=== PATIENT | male | born 1975 | race Caucasian/White ===

== ENCOUNTER 2020-10-25 04:42 | Emergency (ER) | payer MEDICAID ==
[~2020-10-25] VITALS: Ht 160 cm; Wt 74.0 kg
[~2020-10-25 04:42] MED LIST: ABILIFY; FOLIC ACID; METFORMIN; PANTOPRAZOLE; PHENYTOIN SODIUM; SEROQUEL; THIAMINE; [UNRECOGNIZED DRUG - OTHER]
[2020-10-25 05:11] VITALS: BP 124/86
== END 2020-10-25 08:36 | disposition home or self-care (01) ==
LOC: ER 04:42
DX: R53.1 Weakness (principal); Z88.8 Allergy status to other drugs, medicaments and biological substances; Z53.21 Procedure and treatment not carried out due to patient leaving prior to being seen by health care provider

== ENCOUNTER 2021-04-05 13:23 | Emergency (ER) | payer MEDICAID ==
[~2021-04-05] VITALS: Ht 165.1 cm; Wt 61.0 kg
[2021-04-05 13:28] VITALS: BP 124/74
== END 2021-04-05 13:36 | disposition left against medical advice (07) ==
LOC: ER 13:23
DX: Z53.21 Procedure and treatment not carried out due to patient leaving prior to being seen by health care provider (principal)

== ENCOUNTER 2021-04-12 10:32 | Emergency (ER) | payer MEDICAID ==
[~2021-04-12] VITALS: Ht 157.5 cm; Wt 68.5 kg
[2021-04-12 11:06] VITALS: BP 111/79
== END 2021-04-12 11:08 | disposition left against medical advice (07) ==
LOC: ER 10:32
DX: Z53.21 Procedure and treatment not carried out due to patient leaving prior to being seen by health care provider (principal)

== ENCOUNTER 2021-04-14 23:32 | Emergency (ER) | payer MEDICAID ==
[~2021-04-14] VITALS: Ht 154.9 cm; Wt 71.4 kg
[2021-04-14 23:43] VITALS: BP 108/58
== END 2021-04-15 00:40 | disposition home or self-care (01) ==
LOC: ER 23:32
DX: Z00.00 Encounter for general adult medical examination without abnormal findings (principal); R56.9 Unspecified convulsions; Z59.0 Homelessness; E11.9 Type 2 diabetes mellitus without complications; I11.9 Hypertensive heart disease without heart failure; Z88.6 Allergy status to analgesic agent; Z88.8 Allergy status to other drugs, medicaments and biological substances; Z98.890 Other specified postprocedural states
CPT/HCPCS: 82962; 99281

== ENCOUNTER 2021-11-14 11:45 | Emergency (ER) | payer MEDICAID ==
[~2021-11-14] VITALS: Ht 170.2 cm; Wt 72.0 kg
[~2021-11-14 11:45] MED LIST changes: +DEPER5 MT; +OLAN10TA3 MT; +PHEN100C4 MT
[2021-11-14 11:52] VITALS: BP 113/71
== END 2021-11-14 18:40 | disposition left against medical advice (07) ==
LOC: ER 12:20
DX: Z53.21 Procedure and treatment not carried out due to patient leaving prior to being seen by health care provider (principal)
CPT/HCPCS: 99283

== ENCOUNTER 2021-12-11 18:10 | Emergency (ER) | payer MEDICAID ==
[~2021-12-11] VITALS: Ht 175.3 cm; Wt 80.0 kg
[2021-12-11 18:12] VITALS: BP 114/74
== END 2021-12-11 19:19 | disposition left against medical advice (07) ==
LOC: ER 18:10
DX: Z53.21 Procedure and treatment not carried out due to patient leaving prior to being seen by health care provider (principal); F31.9 Bipolar disorder, unspecified; F20.9 Schizophrenia, unspecified

== ENCOUNTER 2021-12-15 02:25 | Emergency (ER) | payer MEDICAID ==
[~2021-12-15] VITALS: Ht 157.5 cm; Wt 59.0 kg
[2021-12-15 02:29] VITALS: BP 118/73
== END 2021-12-15 03:19 | disposition home or self-care (01) ==
LOC: ER 02:52
DX: F31.9 Bipolar disorder, unspecified (principal); F41.9 Anxiety disorder, unspecified; E11.9 Type 2 diabetes mellitus without complications; F20.9 Schizophrenia, unspecified; Z88.3 Allergy status to other anti-infective agents; Z88.6 Allergy status to analgesic agent; Z88.8 Allergy status to other drugs, medicaments and biological substances
CPT/HCPCS: 99283

== ENCOUNTER 2021-12-16 00:29 | Emergency (ER) | payer MEDICAID ==
[~2021-12-16] VITALS: Ht 154.9 cm; Wt 64.0 kg
[2021-12-16 04:21] VITALS: BP 128/66
== END 2021-12-16 04:28 | disposition home or self-care (01) ==
LOC: ER 00:29 → EDUNIT# 00:29 → ER 04:28
DX: M54.9 Dorsalgia, unspecified (principal); F32.9 Major depressive disorder, single episode, unspecified; Z88.6 Allergy status to analgesic agent; Z88.8 Allergy status to other drugs, medicaments and biological substances; Z59.00 Homelessness unspecified
CPT/HCPCS: 99283

== ENCOUNTER 2022-06-05 22:01 | Emergency (ER) | payer MEDICAID | END 2022-06-05 22:30 | disposition left against medical advice (07) | LOC: ER 22:01 | DX: Z53.21 Procedure and treatment not carried out due to patient leaving prior to being seen by health care provider (principal) ==

== ENCOUNTER 2023-11-07 14:50 | Emergency (ER) | payer MEDICAID ==
[~2023-11-07] VITALS: Ht 170.2 cm; Wt 69.0 kg
[2023-11-07 14:58] VITALS: O2SAT 100
[2023-11-07] MEDS ORDERED: LORAZEPAM 2MG/ML INJ IM STA (15:14)
[2023-11-07 15:48] LABS: CLARITY URINE CLEAR (CLEAR); COLOR URINE YELLOW (YELLOW); GLUCOSE URINE NEGATIVE (NEGATIVE); KETONES URINE 2+ (NEGATIVE); LEUKOCYTE ESTERASE URINE NEGATIVE (NEGATIVE); NITRITE URINE NEGATIVE (NEGATIVE); OCCULT BLOOD URINE NEGATIVE (NEGATIVE); PH URINE 5.5 (4.5-8.0); PROTEIN URINE 1+ (NEGATIVE); SPECIFIC GRAVITY URINE 1.038 (1.005-1.030)
[2023-11-07 16:04] LABS: BACTERIA URINE 2+
[2023-11-07 16:05] LABS: MUCUS URINE TRACE /lpf (NONE/TRACE); RBC URINE 0-2 /hpf (0-2); SQUAMOUS EPITHELIAL CELL URINE FEW /lpf (RARE/1+); WBC URINE 0-2 /hpf (0-2)
[2023-11-07 17:05] LABS: HEMATOCRIT. 38.3 % (42.0-52.0); HEMOGLOBIN. 12.4 g/dL (14.0-18.0); MEAN CORPUSCULAR HEMOGLOBIN 31.1 pg (28.0-32.0); MEAN CORPUSCULAR HGB CONC 32.5 g/dL (31.0-37.0); MEAN CORPUSCULAR VOLUME 95.7 fL (80.0-94.0); MEAN PLATELET VOLUME 9.2 fl (7.4-10.4); PLATELET 205 x1000/uL (130-400); RED CELL DISTRIBUTION WIDTH 13.3 % (11.6-14.6); WHITE BLOOD COUNT 8.5 x1000/uL (4.5-11.0)
[2023-11-07 17:09] LABS: DIFFERENTIAL COMMENT 1
[2023-11-07 17:11] LABS: *AMPHETAMINES SCREEN URINE NEGATIVE (NEGATIVE); *BARBITURATES SCREEN URINE NEGATIVE (NEGATIVE); *BENZODIAZEPINES SCREEN URINE NEGATIVE (NEGATIVE); *COCAINE SCREEN URINE NEGATIVE (NEGATIVE); ECSTASY MDMA SCREEN URINE NEGATIVE (NEGATIVE); METHADONE URINE SCREEN Neg (NEGATIVE); OPIATES URINE SCREEN NEGATIVE (NEGATIVE); PHENCYCLIDINE URINE SCREEN NEGATIVE (NEGATIVE)
[2023-11-07 17:23] LABS: ALANINE AMINOTRANSFERASE 86 IU/L (10-49); ALBUMIN 3.7 g/dL (3.2-4.8); ASPARTATE AMINOTRANSFERASE 230 IU/L (<34); BILIRUBIN TOTAL 0.8 mg/dL (0.1-1.0); CALCIUM 8.3 mg/dL (8.7-10.4); CARBON DIOXIDE 23 mEq/L (21-32); CHLORIDE 103 mEq/L (98-107); CREATININE 0.8 mg/dL (0.6-1.3); GLUCOSE 127 mg/dL (70-105); POTASSIUM 3.9 mEq/L (3.5-5.1); PROTEIN TOTAL 6.5 g/dL (6.0-8.3); SODIUM 136 mEq/L (136-145); UREA NITROGEN BLOOD 30 mg/dL (9-23)
[2023-11-07 17:24] LABS: ETHANOL BLOOD < 10 mg/dL (<10)
[2023-11-07 17:30] LABS: PLATELET ESTIMATE NORMAL
[2023-11-08 07:53] VITALS: BP 112/73; PULSE 87; RESP 18; TEMP 98.2
[2023-11-08] MEDS ORDERED: CLOTRIMAZOLE 1% CREAM 15GM TOP ONE (08:15)
== END 2023-11-08 09:37 | disposition home or self-care (01) ==
LOC: ER 14:50
DX: F31.9 Bipolar disorder, unspecified (principal); R45.851 Suicidal ideations; F20.9 Schizophrenia, unspecified; Z88.6 Allergy status to analgesic agent; Z88.4 Allergy status to anesthetic agent; Z88.5 Allergy status to narcotic agent; Z88.8 Allergy status to other drugs, medicaments and biological substances; Z20.822 Contact with and (suspected) exposure to COVID-19
CPT/HCPCS: 80053; 80305; 81003; 80307; 80329; 80320; 85025; 36415; 96372; 99284; 87426; J2060; G0480

== ENCOUNTER 2023-11-19 23:03 | Emergency (ER) | payer MEDICAID ==
[~2023-11-19] VITALS: Ht 154.9 cm; Wt 61.0 kg
[2023-11-19 23:14] VITALS: O2SAT 95
[2023-11-20 01:48] VITALS: BP 114/76; PULSE 90; RESP 16; TEMP 98.6
== END 2023-11-20 03:45 | disposition home or self-care (01) ==
LOC: ER 23:03
DX: R46.2 Strange and inexplicable behavior (principal); R56.9 Unspecified convulsions
CPT/HCPCS: 99283

== ENCOUNTER 2023-12-13 13:02 | Emergency (ER) | payer MEDICAID ==
[~2023-12-13] VITALS: Ht 170.2 cm; Wt 84.0 kg
[2023-12-13 13:08] VITALS: BP 142/74; PULSE 96; RESP 16; TEMP 98.5; O2SAT 98
== END 2023-12-13 18:21 | disposition home or self-care (01) ==
LOC: ER 13:02
DX: F10.129 Alcohol abuse with intoxication, unspecified (principal); Z88.4 Allergy status to anesthetic agent; Z88.8 Allergy status to other drugs, medicaments and biological substances; Z88.6 Allergy status to analgesic agent; Z88.9 Allergy status to unspecified drugs, medicaments and biological substances; Z88.5 Allergy status to narcotic agent; Z79.899 Other long term (current) drug therapy; Z86.59 Personal history of other mental and behavioral disorders; Y90.9 Presence of alcohol in blood, level not specified
CPT/HCPCS: 99283; Z7610

== ENCOUNTER 2024-02-23 16:52 | Emergency (ER) | payer MEDICAID ==
[~2024-02-23] VITALS: Ht 154.9 cm; Wt 82.0 kg
[2024-02-23 17:11] VITALS: O2SAT 99
[2024-02-23 17:59] LABS: BASOPHILS % 0.7 % (0.0-2.0); EOSINOPHILS % 1.5 % (0.0-5.0); HEMATOCRIT. 30.6 % (42.0-52.0); HEMOGLOBIN. 10.3 g/dL (14.0-18.0); LYMPHOCYTES % 16.6 % (20.0-50.0); MEAN CORPUSCULAR HEMOGLOBIN 32.1 pg (28.0-32.0); MEAN CORPUSCULAR HGB CONC 33.7 g/dL (31.0-37.0); MEAN PLATELET VOLUME 9.4 fl (7.4-10.4); NEUTROPHILS % 68.2 % (40.0-76.0); PLATELET 175 x1000/uL (130-400); RED BLOOD CELL COUNT 3.22 mill/uL (4.7-6.1); RED CELL DISTRIBUTION WIDTH 16.4 % (11.6-14.6); WHITE BLOOD COUNT 6.7 x1000/uL (4.5-11.0)
[2024-02-23] MEDS: SODIUM CHLORIDE 0.9% 1000ML BAG (SEPSIS BOLUS) IV ONE (18:02)
[2024-02-23] MEDS: CEFTRIAXONE 1GM/50ML 50 ML IV ONE (18:02)
[2024-02-23 18:05] LABS: CHLORIDE 108 mEq/L (98-107); SODIUM 138 mEq/L (136-145)
[2024-02-23 18:06] LABS: CALCIUM 7.7 mg/dL (8.7-10.4); CARBON DIOXIDE 24 mEq/L (21-32)
[2024-02-23 18:11] LABS: CREATININE 0.7 mg/dL (0.6-1.3); GLUCOSE 86 mg/dL (70-105); UREA NITROGEN BLOOD 19 mg/dL (9-23)
[2024-02-23 18:12] LABS: TROPONIN I HIGH SENSITIVITY 8 ng/L (3.0-53)
[2024-02-23 18:13] LABS: ALANINE AMINOTRANSFERASE 480 IU/L (10-49); ALBUMIN 3.6 g/dL (3.2-4.8); ASPARTATE AMINOTRANSFERASE 404 IU/L (<34); BILIRUBIN TOTAL 0.3 mg/dL (0.1-1.0); PROTEIN TOTAL 5.8 g/dL (6.0-8.3)
[2024-02-23 18:25] LABS: INR 0.9; PROTHROMBIN TIME 10.1 sec (9.6-11.0)
[2024-02-23 18:41] LABS: CLARITY URINE CLEAR (CLEAR); COLOR URINE YELLOW (YELLOW); GLUCOSE URINE NEGATIVE (NEGATIVE); KETONES URINE TRACE (NEGATIVE); LEUKOCYTE ESTERASE URINE NEGATIVE (NEGATIVE); NITRITE URINE NEGATIVE (NEGATIVE); OCCULT BLOOD URINE NEGATIVE (NEGATIVE); PROTEIN URINE NEGATIVE (NEGATIVE); SPECIFIC GRAVITY URINE 1.029 (1.005-1.030)
[2024-02-23 19:34] LABS: TROPONIN I HIGH SENSITIVITY 7 ng/L (3.0-53)
[2024-02-23] MEDS: IBUPROFEN 600MG TABLET PO ONE (20:19)
[2024-02-23 22:00] LABS: TROPONIN I HIGH SENSITIVITY 6 ng/L (3.0-53)
[2024-02-24 01:19] LABS: ETHANOL BLOOD < 10 mg/dL (<10)
[2024-02-24 01:20] LABS: ACETAMINOPHEN < 2 ug/mL (10-30)
[2024-02-24] MEDS: OXYMETAZOLINE HCL NASAL SPRAY 15ML BOTHNSTRLS SCH (09:00)
[2024-02-24] MEDS ORDERED: LORAZEPAM 1MG TABLET PO ONE (09:30)
[2024-02-24] MEDS: DIVALPROEX SODIUM 500MG ER TABLET PO ONE (09:45)
[2024-02-24 13:15] LABS: *AMPHETAMINES SCREEN URINE NEGATIVE (NEGATIVE); *BARBITURATES SCREEN URINE NEGATIVE (NEGATIVE); *BENZODIAZEPINES SCREEN URINE NEGATIVE (NEGATIVE); *COCAINE SCREEN URINE NEGATIVE (NEGATIVE); CANNABINOID URINE SCREEN NEGATIVE (NEGATIVE); ECSTASY MDMA SCREEN URINE NEGATIVE (NEGATIVE); METHADONE URINE SCREEN NEGATIVE (NEGATIVE); OPIATES URINE SCREEN NEGATIVE (NEGATIVE); PHENCYCLIDINE URINE SCREEN NEGATIVE (NEGATIVE)
[2024-02-24] MEDS: DIVALPROEX SODIUM 250MG ER TABLET PO SCH (21:25)
[2024-02-27 10:11] VITALS: BP 110/71; PULSE 85; RESP 17; TEMP 98.1
== END 2024-02-27 10:13 | disposition short-term general hospital (02) ==
LOC: ER 16:52
DX: F31.9 Bipolar disorder, unspecified (principal); R45.851 Suicidal ideations; E11.9 Type 2 diabetes mellitus without complications; Z20.822 Contact with and (suspected) exposure to COVID-19
CPT/HCPCS: 80053; 80305; 81003; 80307; 80329; 80320; 83880; 83605; 85025; 85610; 87040; 87086; 84484; 87804 ×2; 36415; 84145; 71045; 93005; 96365; 99285; 87426; Z7610 ×5; J0696; J7030; G0480

== ENCOUNTER 2024-03-14 12:23 | Emergency (ER) | payer MEDICAID ==
[~2024-03-14] VITALS: Ht 160 cm; Wt 60.0 kg
[2024-03-14 12:32] VITALS: O2SAT 98
[2024-03-14 14:07] LABS: HEMATOCRIT. 35.3 % (42.0-52.0); HEMOGLOBIN. 12.1 g/dL (14.0-18.0); MEAN CORPUSCULAR HEMOGLOBIN 32.2 pg (28.0-32.0); MEAN CORPUSCULAR HGB CONC 34.1 g/dL (31.0-37.0); MEAN CORPUSCULAR VOLUME 94.5 fL (80.0-94.0); MEAN PLATELET VOLUME 7.8 fl (7.4-10.4); PLATELET 409 x1000/uL (130-400); RED BLOOD CELL COUNT 3.74 mill/uL (4.7-6.1); RED CELL DISTRIBUTION WIDTH 17.2 % (11.6-14.6); WHITE BLOOD COUNT 7.5 x1000/uL (4.5-11.0)
[2024-03-14 14:08] LABS: DIFFERENTIAL COMMENT 1
[2024-03-14 14:27] LABS: CHLORIDE 105 mEq/L (98-107); SODIUM 140 mEq/L (136-145)
[2024-03-14 14:28] LABS: CALCIUM 9.5 mg/dL (8.7-10.4); CARBON DIOXIDE 28 mEq/L (21-32)
[2024-03-14 14:33] LABS: CREATININE 0.7 mg/dL (0.6-1.3); GLUCOSE 81 mg/dL (70-105); UREA NITROGEN BLOOD 21 mg/dL (9-23)
[2024-03-14 14:47] LABS: ETHANOL BLOOD < 10 mg/dL (<10)
[2024-03-14 15:35] LABS: ANISOCYTOSIS 1+; PLATELET ESTIMATE INCREASED
[2024-03-14 17:26] LABS: CLARITY URINE CLEAR (CLEAR); COLOR URINE YELLOW (YELLOW); GLUCOSE URINE NEGATIVE (NEGATIVE); KETONES URINE NEGATIVE (NEGATIVE); LEUKOCYTE ESTERASE URINE NEGATIVE (NEGATIVE); NITRITE URINE NEGATIVE (NEGATIVE); OCCULT BLOOD URINE NEGATIVE (NEGATIVE); PROTEIN URINE NEGATIVE (NEGATIVE); SPECIFIC GRAVITY URINE 1.022 (1.005-1.030); UROBILINOGEN URINE 0.2 E.U./dL (0.2-1.0)
[2024-03-14 17:39] LABS: *AMPHETAMINES SCREEN URINE NEGATIVE (NEGATIVE); *BARBITURATES SCREEN URINE NEGATIVE (NEGATIVE); *BENZODIAZEPINES SCREEN URINE NEGATIVE (NEGATIVE); *COCAINE SCREEN URINE NEGATIVE (NEGATIVE); CANNABINOID URINE SCREEN NEGATIVE (NEGATIVE); ECSTASY MDMA SCREEN URINE NEGATIVE (NEGATIVE); METHADONE URINE SCREEN NEGATIVE (NEGATIVE); OPIATES URINE SCREEN NEGATIVE (NEGATIVE); PHENCYCLIDINE URINE SCREEN NEGATIVE (NEGATIVE)
[2024-03-15] MEDS: RISPERIDONE 0.5MG TABLET PO SCH (17:33)
[2024-03-15 20:11] VITALS: BP 129/82; PULSE 76; RESP 18; TEMP 96.2
== END 2024-03-15 20:20 ==
LOC: ER 12:59
DX: R44.0 Auditory hallucinations (principal); E11.9 Type 2 diabetes mellitus without complications; Z20.822 Contact with and (suspected) exposure to COVID-19; Z88.3 Allergy status to other anti-infective agents; Z88.1 Allergy status to other antibiotic agents; Z88.8 Allergy status to other drugs, medicaments and biological substances; Z88.6 Allergy status to analgesic agent; Z88.5 Allergy status to narcotic agent; Z79.899 Other long term (current) drug therapy; Z86.59 Personal history of other mental and behavioral disorders
CPT/HCPCS: 36415; 80048; 80305; 80320; 81003; 85025; 87426; 99285; G0480

== ENCOUNTER 2024-03-26 20:30 | Emergency (ER) | payer MEDICAID ==
[~2024-03-26] VITALS: Ht 170.2 cm; Wt 77.0 kg
[2024-03-26 20:51] VITALS: BP 142/97; PULSE 88; RESP 18; TEMP 97.9; O2SAT 97
[2024-03-26 22:17] LABS: EOSINOPHILS % 4.1 % (0.0-5.0); HEMATOCRIT. 38.2 % (42.0-52.0); HEMOGLOBIN. 12.7 g/dL (14.0-18.0); LYMPHOCYTES % 27.3 % (20.0-50.0); MEAN CORPUSCULAR HEMOGLOBIN 31.6 pg (28.0-32.0); MEAN CORPUSCULAR HGB CONC 33.2 g/dL (31.0-37.0); MEAN CORPUSCULAR VOLUME 95.1 fL (80.0-94.0); MEAN PLATELET VOLUME 9.2 fl (7.4-10.4); MONOCYTES % 8.3 % (2.0-8.0); NEUTROPHILS % 59.3 % (40.0-76.0); PLATELET 236 x1000/uL (130-400); RED BLOOD CELL COUNT 4.02 mill/uL (4.7-6.1); RED CELL DISTRIBUTION WIDTH 16.8 % (11.6-14.6); WHITE BLOOD COUNT 4.7 x1000/uL (4.5-11.0)
[2024-03-26 22:38] LABS: CARBON DIOXIDE 29 mEq/L (21-32); CHLORIDE 104 mEq/L (98-107); SODIUM 136 mEq/L (136-145)
[2024-03-26 22:39] LABS: CALCIUM 9.4 mg/dL (8.7-10.4)
[2024-03-26 22:44] LABS: CREATININE 0.7 mg/dL (0.6-1.3); GLUCOSE 86 mg/dL (70-105); UREA NITROGEN BLOOD 16 mg/dL (9-23)
[2024-03-26 23:07] LABS: CLARITY URINE CLEAR (CLEAR); COLOR URINE YELLOW (YELLOW); GLUCOSE URINE NEGATIVE (NEGATIVE); KETONES URINE NEGATIVE (NEGATIVE); LEUKOCYTE ESTERASE URINE NEGATIVE (NEGATIVE); NITRITE URINE NEGATIVE (NEGATIVE); OCCULT BLOOD URINE NEGATIVE (NEGATIVE); PH URINE 7.5 (4.5-8.0); PROTEIN URINE NEGATIVE (NEGATIVE); SPECIFIC GRAVITY URINE 1.013 (1.005-1.030); UROBILINOGEN URINE 0.2 E.U./dL (0.2-1.0)
== END 2024-03-27 00:40 | disposition left against medical advice (07) ==
LOC: ER 20:34
DX: R55 Syncope and collapse (principal); Z53.21 Procedure and treatment not carried out due to patient leaving prior to being seen by health care provider
CPT/HCPCS: 36415; 80048; 81003; 85025; 93005; 99281

== ENCOUNTER 2024-03-27 22:50 | Emergency (ER) | payer MEDICAID ==
[~2024-03-27] VITALS: Ht 154.9 cm; Wt 65.0 kg
[2024-03-27 23:55] VITALS: TEMP 98.4; O2SAT 99
[2024-03-28 02:05] VITALS: BP 138/88; PULSE 80; RESP 18
== END 2024-03-28 02:06 | disposition home or self-care (01) ==
LOC: ER 22:50
DX: H53.8 Other visual disturbances (principal); F12.90 Cannabis use, unspecified, uncomplicated; F14.90 Cocaine use, unspecified, uncomplicated; Z88.6 Allergy status to analgesic agent; Z88.8 Allergy status to other drugs, medicaments and biological substances; Z88.5 Allergy status to narcotic agent
CPT/HCPCS: 99282

== ENCOUNTER 2024-05-07 10:52 | Emergency (ER) | payer MEDICAID ==
[~2024-05-07] VITALS: Ht 165.1 cm; Wt 75.0 kg
[2024-05-07 10:57] VITALS: BP 99/60; PULSE 100; RESP 18; TEMP 98.1; O2SAT 100
== END 2024-05-07 14:33 | disposition left against medical advice (07) ==
LOC: ER 10:52
DX: I10 Essential (primary) hypertension (principal); Z53.21 Procedure and treatment not carried out due to patient leaving prior to being seen by health care provider

== ENCOUNTER 2024-05-07 15:31 | Emergency (ER) | payer MEDICAID ==
[~2024-05-07] VITALS: Ht 154.9 cm; Wt 68.0 kg
[2024-05-07 15:35] VITALS: O2SAT 99
[2024-05-07 16:46] LABS: BASOPHILS % 1.1 % (0.0-2.0); HEMATOCRIT. 45.3 % (42.0-52.0); LYMPHOCYTES % 30.5 % (20.0-50.0); MEAN CORPUSCULAR HEMOGLOBIN 31.3 pg (28.0-32.0); MEAN CORPUSCULAR HGB CONC 33.2 g/dL (31.0-37.0); MEAN CORPUSCULAR VOLUME 94.4 fL (80.0-94.0); MONOCYTES % 8.1 % (2.0-8.0); NEUTROPHILS % 58.3 % (40.0-76.0); PLATELET 181 x1000/uL (130-400); RED BLOOD CELL COUNT 4.79 mill/uL (4.7-6.1); RED CELL DISTRIBUTION WIDTH 13.3 % (11.6-14.6); WHITE BLOOD COUNT 5.8 x1000/uL (4.5-11.0)
[2024-05-07 16:50] LABS: CHLORIDE 103 mEq/L (98-107); POTASSIUM 4.1 mEq/L (3.5-5.1); SODIUM 139 mEq/L (136-145)
[2024-05-07 16:51] LABS: CALCIUM 9.3 mg/dL (8.7-10.4); CARBON DIOXIDE 28 mEq/L (21-32)
[2024-05-07 16:56] LABS: CREATININE 0.8 mg/dL (0.6-1.3); GLUCOSE 73 mg/dL (70-105); UREA NITROGEN BLOOD 9 mg/dL (9-23)
[2024-05-07 16:58] LABS: ALANINE AMINOTRANSFERASE 20 IU/L (10-49); ALBUMIN 4.7 g/dL (3.2-4.8); ASPARTATE AMINOTRANSFERASE 28 IU/L (<34); BILIRUBIN TOTAL 0.3 mg/dL (0.1-1.0); PROTEIN TOTAL 7.7 g/dL (6.0-8.3)
[2024-05-07 17:31] LABS: *AMPHETAMINES SCREEN URINE NEGATIVE (NEGATIVE); *BARBITURATES SCREEN URINE NEGATIVE (NEGATIVE); *BENZODIAZEPINES SCREEN URINE NEGATIVE (NEGATIVE); *COCAINE SCREEN URINE NEGATIVE (NEGATIVE); CANNABINOID URINE SCREEN NEGATIVE (NEGATIVE); METHADONE URINE SCREEN NEGATIVE (NEGATIVE); OPIATES URINE SCREEN NEGATIVE (NEGATIVE); PHENCYCLIDINE URINE SCREEN NEGATIVE (NEGATIVE)
[2024-05-07 17:32] LABS: ECSTASY MDMA SCREEN URINE NEGATIVE (NEGATIVE)
[2024-05-07] MEDS: SODIUM CHLORIDE 0.9% 1,000 ML IV ONE (17:57)
[2024-05-07 19:59] VITALS: BP 124/76; PULSE 70; RESP 11; TEMP 99.1
[2024-05-10 08:14] LABS: ETHANOL URINE Negative % (Cutoff=0.020)
== END 2024-05-07 20:10 | disposition home or self-care (01) ==
LOC: ER 15:31
DX: R53.1 Weakness (principal); F31.9 Bipolar disorder, unspecified; E11.9 Type 2 diabetes mellitus without complications; I10 Essential (primary) hypertension; F14.10 Cocaine abuse, uncomplicated; F12.10 Cannabis abuse, uncomplicated; Z79.899 Other long term (current) drug therapy; Z90.49 Acquired absence of other specified parts of digestive tract
CPT/HCPCS: 80053; 80305; 85025; 36415; 80320; 96360; 99283; J7030

== ENCOUNTER 2024-05-12 02:36 | Emergency (ER) | payer MEDICAID ==
[~2024-05-12] VITALS: Ht 154.9 cm; Wt 55.0 kg
[2024-05-12 02:49] VITALS: BP 135/76; PULSE 105; RESP 12; TEMP 97.8; O2SAT 97
== END 2024-05-12 04:11 | disposition left against medical advice (07) ==
LOC: ER 03:07
DX: H53.8 Other visual disturbances (principal); F31.9 Bipolar disorder, unspecified; E11.9 Type 2 diabetes mellitus without complications; I10 Essential (primary) hypertension; F14.10 Cocaine abuse, uncomplicated; F12.10 Cannabis abuse, uncomplicated; Z79.899 Other long term (current) drug therapy; Z90.49 Acquired absence of other specified parts of digestive tract
CPT/HCPCS: 99281

== ENCOUNTER 2024-05-14 20:06 | Emergency (ER) | payer MEDICAID ==
[~2024-05-14] VITALS: Ht 152.4 cm; Wt 64.0 kg
[2024-05-14 20:28] VITALS: TEMP 98.2; O2SAT 97
[2024-05-14] MEDS: SODIUM CHLORIDE 0.9% 1,000 ML IV ONE (21:45)
[2024-05-14 22:57] LABS: BASOPHILS % 0.3 % (0.0-2.0); EOSINOPHILS % 0.3 % (0.0-5.0); HEMATOCRIT. 37.8 % (42.0-52.0); LYMPHOCYTES % 9.4 % (20.0-50.0); MEAN CORPUSCULAR HEMOGLOBIN 31.8 pg (28.0-32.0); MEAN CORPUSCULAR HGB CONC 34.5 g/dL (31.0-37.0); MEAN CORPUSCULAR VOLUME 92.1 fL (80.0-94.0); MEAN PLATELET VOLUME 8.9 fl (7.4-10.4); MONOCYTES % 9.5 % (2.0-8.0); NEUTROPHILS % 80.5 % (40.0-76.0); PLATELET 241 x1000/uL (130-400); RED CELL DISTRIBUTION WIDTH 13.1 % (11.6-14.6); WHITE BLOOD COUNT 10.1 x1000/uL (4.5-11.0)
[2024-05-14 23:05] LABS: CHLORIDE 99 mEq/L (98-107); POTASSIUM 3.2 mEq/L (3.5-5.1); SODIUM 133 mEq/L (136-145)
[2024-05-14 23:06] LABS: CALCIUM 9.2 mg/dL (8.7-10.4); CARBON DIOXIDE 25 mEq/L (21-32)
[2024-05-14 23:08] LABS: PARTIAL THROMBOPLASTIN TIME 31.6 sec (23.4-31.0); PROTHROMBIN TIME 10.7 sec (9.6-11.0)
[2024-05-14 23:11] LABS: CREATININE 0.7 mg/dL (0.6-1.3); GLUCOSE 111 mg/dL (70-105); UREA NITROGEN BLOOD 27 mg/dL (9-23); VALPROIC ACID 4.6 ug/mL (50-100)
[2024-05-14 23:12] LABS: TROPONIN I HIGH SENSITIVITY 4 ng/L (3.0-53)
[2024-05-14 23:13] LABS: ACETAMINOPHEN < 2 ug/mL (10-30); ALANINE AMINOTRANSFERASE 27 IU/L (10-49); ALBUMIN 4.7 g/dL (3.2-4.8); ASPARTATE AMINOTRANSFERASE 28 IU/L (<34); BILIRUBIN TOTAL 1.2 mg/dL (0.1-1.0); ETHANOL BLOOD < 10 mg/dL (<10); PHENYTOIN < 2.0 ug/mL (10-20); PROTEIN TOTAL 7.5 g/dL (6.0-8.3)
[2024-05-15] MEDS: POTASSIUM CHLORIDE 20MEQ/PACKET PO ONE (00:15)
[2024-05-15 01:34] LABS: TROPONIN I HIGH SENSITIVITY < 4 ng/L (3.0-53)
[2024-05-15 04:46] VITALS: BP 110/66; PULSE 87; RESP 16
== END 2024-05-15 07:45 | disposition left against medical advice (07) ==
LOC: ER 20:06
DX: R41.82 Altered mental status, unspecified (principal); E23.2 Diabetes insipidus; I10 Essential (primary) hypertension; F12.90 Cannabis use, unspecified, uncomplicated; F14.90 Cocaine use, unspecified, uncomplicated; Z88.8 Allergy status to other drugs, medicaments and biological substances; Z88.5 Allergy status to narcotic agent
CPT/HCPCS: 80053; 80307; 80329; 80320; 80185; 82962; 80165; 85025; 85610; 85730; 84484 ×2; 36415 ×2; 71045; 70450; 93005 ×2; 96360; 99285; J7030; G0480

== ENCOUNTER 2024-05-21 22:05 | Emergency (ER) | payer MEDICAID ==
[~2024-05-21] VITALS: Ht 170.2 cm; Wt 73.0 kg
[2024-05-21 22:33] VITALS: O2SAT 97
[2024-05-22 03:34] LABS: CHLORIDE 104 mEq/L (98-107); POTASSIUM 3.1 mEq/L (3.5-5.1); SODIUM 136 mEq/L (136-145)
[2024-05-22 03:35] LABS: CALCIUM 8.8 mg/dL (8.7-10.4); CARBON DIOXIDE 24 mEq/L (21-32)
[2024-05-22 03:40] LABS: BASOPHILS % 0.8 % (0.0-2.0); CREATININE 0.6 mg/dL (0.6-1.3); EOSINOPHILS % 1.1 % (0.0-5.0); GLUCOSE 112 mg/dL (70-105); HEMATOCRIT. 36.2 % (42.0-52.0); MEAN CORPUSCULAR HEMOGLOBIN 30.7 pg (28.0-32.0); MEAN CORPUSCULAR HGB CONC 33.2 g/dL (31.0-37.0); MEAN CORPUSCULAR VOLUME 92.3 fL (80.0-94.0); MEAN PLATELET VOLUME 7.4 fl (7.4-10.4); MONOCYTES % 12.2 % (2.0-8.0); NEUTROPHILS % 66.9 % (40.0-76.0); PLATELET 399 x1000/uL (130-400); RED BLOOD CELL COUNT 3.92 mill/uL (4.7-6.1); RED CELL DISTRIBUTION WIDTH 13.2 % (11.6-14.6); WHITE BLOOD COUNT 7.9 x1000/uL (4.5-11.0)
[2024-05-22 03:42] LABS: ACETAMINOPHEN < 2 ug/mL (10-30); ALANINE AMINOTRANSFERASE 20 IU/L (10-49); ALBUMIN 4.2 g/dL (3.2-4.8); ASPARTATE AMINOTRANSFERASE 28 IU/L (<34); BILIRUBIN DIRECT 0.1 mg/dL (<=3.0); BILIRUBIN TOTAL 0.3 mg/dL (0.1-1.0); PROTEIN TOTAL 6.9 g/dL (6.0-8.3)
[2024-05-22 03:43] LABS: ETHANOL BLOOD < 10 mg/dL (<10); UREA NITROGEN BLOOD < 5 mg/dL (9-23)
[2024-05-22] MEDS: METFORMIN HCL 500MG TABLET PO SCH (09:08)
[2024-05-22 12:42] VITALS: BP 126/78; PULSE 88; RESP 14; TEMP 98.3
== END 2024-05-22 12:59 | disposition home or self-care (01) ==
LOC: ER 22:05
DX: R45.851 Suicidal ideations (principal); I10 Essential (primary) hypertension; E11.9 Type 2 diabetes mellitus without complications; Z91.148 Patient's other noncompliance with medication regimen for other reason; Z88.8 Allergy status to other drugs, medicaments and biological substances; Z88.6 Allergy status to analgesic agent; Z88.5 Allergy status to narcotic agent; Z79.899 Other long term (current) drug therapy
CPT/HCPCS: 36415; 80048; 80076; 80307; 80320; 80329; 82962; 85025; 99285; G0480